=== PATIENT | female | born 1995 ===

== ENCOUNTER 2022-10-25 11:48 | Observation (INO) | payer MEDICAID ==
[2022-10-25] MEDS ORDERED: Labetalol 100 MG Tab PO ONE (12:21)
[2022-10-25 15:09] LABS: CARBON DIOXIDE,CO2 25.8 mmol/L (21.0-32.0); POTASSIUM,K 3.7 mmol/L (3.5-5.1)
[2022-10-25] MEDS ORDERED: Acetaminophen 325 MG Tab PO ONE (15:46)
[2022-10-25] MEDS ORDERED: Acetaminophen/Butalbital/Caffeine 325-50-40 MG Tab PO ONE (17:56)
[2022-10-25] MEDS ORDERED: Prochlorperazine 10 MG Tab PO ONE (20:55)
[2022-10-25] MEDS: Labetalol 100 MG Tab PO SCH (21:26)
[2022-10-26 01:38] LABS: CARBON DIOXIDE,CO2 24.3 mmol/L (21.0-32.0); POTASSIUM,K 2.8 mmol/L (3.5-5.1)
[2022-10-26] MEDS ORDERED: Acetaminophen/Butalbital/Caffeine 325-50-40 MG Tab PO ONE (09:00)
[2022-10-26] MEDS ORDERED: Potassium Chloride 20 MEQ Tab.ER PO ONE (09:00)
[2022-10-26] MEDS: Labetalol 100 MG Tab PO SCH (09:05)
== END 2022-10-26 11:53 | disposition home or self-care (01) ==
LOC: MW.OBCHECK 11:48 → MW.OB 11:49 → MW.OBCHECK 19:27 → MW.OB 19:28
PROVIDERS: ADMIT Obstetrics & Gynecology; ATTEND Obstetrics & Gynecology
DX: O14.93 Unspecified pre-eclampsia, third trimester (principal); O16.3 Unspecified maternal hypertension, third trimester; Z79.899 Other long term (current) drug therapy; Z79.82 Long term (current) use of aspirin; Z20.822 Contact with and (suspected) exposure to COVID-19; Z3A.30 30 weeks gestation of pregnancy
CPT/HCPCS: 36415; 59025; 80053; 80143; 82570; 84156; 84550; 85027; 87635; A9270; G0378; Q0164; 59300; U0002